=== PATIENT | female | born 1960 | race Caucasian/White ===

== ENCOUNTER → 2016-12-05 | Day surgery (SDC) | payer OTHER ==
[~2016-12-05] MED LIST: LEVOTHYROXINE100 MCG PO; LOVASTATIN20 MG PO; PAXIL10 MG PO
--- NOTE | 2016-12-05 10:36 | NUR ---
PRE OP INSTRUCTIONS GIVEN AND SAFETY ISSUES DISCUSSED PT AND DAUGHTER HAD QUESTIONS ANSWERED PT CONFIRMED PROCEDURE PT SIGNED CONSENT
--- NOTE | 2016-12-05 12:58 | NUR ---
ID PT IN PRE-OP HOLDING CONFIRMS CONSENT DENIES ALLERGIES NO ATIBIOTIC ORDERED
--- NOTE | 2016-12-05 13:32 | Provider's Discharge Care Plan ---
Problem, Goal, Plan Problem List 1. Irritable bowel syndrome
--- NOTE | 2016-12-05 13:32 | Provider's Discharge Care Plan ---
Problem, Goal, Plan Problem List 1. Irritable bowel syndrome
--- NOTE | 2016-12-05 13:40 | NUR ---
PT TX TO PACU-- AWAKE, TALKING, COMPLAINING OF CRAMPS, ASKING HOW TO RID HERSELF OF IT. ENCOURAGED MOVEMENT, AND WALKING ONCE WE GET UPSTAIRS. VS STABLE, O2 ON FOR NOW.
--- NOTE | 2016-12-05 14:05 | NUR ---
PT TX TO [place]U ON [place], REPORT TO CHAU blair pT AWAKE, PASSING FLATUS, DAUGHTER WITH US TO HER ROOM
--- NOTE | 2016-12-05 14:09 | NUR ---
PT RETURNED FROM PACU STATED AMB TIGHT
--- NOTE | 2016-12-05 14:40 | OPERATIVE REPORT ---
DATE OF SURGERY: 12/05/2016 SURGEON: Rk Williamson MD PREOPERATIVE DIAGNOSIS: 1. Irritable bowel syndrome POSTOPERATIVE DIAGNOSES: 1. Normal colonoscopy PROCEDURE PERFORMED: 1. colonoscopy ANESTHESIA: Total IV general. INDICATIONS: The patient is a 56-year-old woman with a diagnosis of irritable bowel syndrome and ongoing colonic symptoms. She had 2 hyperplastic polyps on colonoscopy by Dr. Horne in 2009. SURGICAL TECHNIQUE: The patient was taken to the operating room, where total IV general was administered and the patient was placed in the left lateral decubitus position. A well-lubricated colonoscope was advanced the length of the colon under direct vision. The patient had moderate tortuosity and abdominal counter pressure was required. The ileocecal valve was visualized. On withdrawal, the whole colon was inspected. There was some minor nonsignificant bumps in the rectum, which may be what was previously found to be hyperplastic polyps. None of these were of enough significance to warrant a biopsy. A retroflexed view was also conducted. The patient left in good condition and no intraoperative complications were encountered.
--- NOTE | 2016-12-05 14:48 | NUR ---
PT AMBULATED IN DASH PASSED FLATUS ASKING TO GO HOME REVIEWED DISCHARGE INSTRUCTIONS VERBAL AND WRITTEN PT EXPRESSED UNDERSTANDING PT DISCHARGED AMBULATORY ACCOMPANIED BY ADULT DAUGHTER
== END | disposition home or self-care (01) ==
LOC: OR SRH 09:41
PROVIDERS: Surgery
PROC: 0DJD8ZZ Inspection of Lower Intestinal Tract, Via Natural or Artificial Opening Endoscopic (ICD-10-PCS; principal; 2016-12-05 12:15)
DX: Z12.11 Encounter for screening for malignant neoplasm of colon (principal); Z86.010 Personal history of colon polyps; K58.0 Irritable bowel syndrome with diarrhea
CPT/HCPCS: 29229; 50004; 60001; 83526

== ENCOUNTER 2017-01-08 09:36 | Outpatient (CLI) | payer OTHER ==
--- NOTE | 2017-01-08 11:10 | DIAGNOSTIC IMAGING REPORT ---
PROCEDURE: US SOFT TISSUE THYR/NECK/HEAD INDICATION: LEFT NECK MASS TECHNIQUE: Alvarado scale and color Doppler sonographic images of the thyroid gland were obtained. COMPARISON: None. FINDINGS: There are several bilateral cervical lymph nodes with normal morphology, slightly more prominent on the left side, largest 1.5 cm in diameter. These findings suggest inflammatory lymph nodes. Right submandibular gland measures 3.9 x 1.5 cm and left submandibular gland measures 3.7 x 1.5 cm. Both have a normal appearance without evidence of mass or inflammatory changes. IMPRESSION: 1. Mild bilateral cervical lymph nodes with normal morphology, more prominent on the left, possibly inflammatory. 2. No evidence of a neck mass.
== END 2017-01-08 23:00 ==
LOC: US SRH 09:36
DX: R22.1 Localized swelling, mass and lump, neck (principal)

== ENCOUNTER 2017-05-09 01:19 | Emergency (ER) | payer OTHER ==
--- NOTE | 2017-05-09 05:47 | ED ORDER SUMMARY ---
..... Patient: MATT NAVARRETE OrderSheet Merg[facility] With [facility] VisitID: [id number] [place] [address] 56y, F Registration Date/Time: 05/09/2017 ORDER SHEET Weight: 99.3 kg (stated) Allergies: Augmentin GENERAL ORDERS: Election Assistant (Continuous) (dizzy) (01:35 05/09/2017 Galindo Camara) (Ack 1:36 OSnell) (3:03 Ezequiel R.N.) EKG - ER Stat (01:35 05/09/2017 Galindo Camara) (Ack 1:36 OSnell) (1:42 Sheryl ER Government Clerk) Pulse oximeter (:05/09/2017 Galindo Camara) (Ack 1:36 OSnell) (1:59 Ezequiel R.N.) CBC w Diff Urgent (02:34 05/09/2017 Galindo Camara) (Ack 2:37 OSnell) (3:03 Ezequiel R.N.) CMP Urgent (02:34 05/09/2017 Galindo Camara) (Ack 2:37 OSnell) (3:03 Ezequiel R.N.) PT with INR Urgent (02:34 05/09/2017 Galindo Camara) (Ack 2:37 OSnell) (3:03 Ezequiel R.N.) Troponin-I Urgent (02:34 05/09/2017 Galindo Camara) (Ack 2:37 OSnell) (3:03 Ezequiel R.N.) Troponin-I (redraw at 0445) Urgent (03:25 05/09/2017 Galindo Camara) (Ack 3:28 OSnell) (4:58 Ezequiel R.N.) MEDICATION ORDERS: IV FLUIDS: IV NS : initial bolus 1000 mL (1000 mL/hr), then none - for X1 (NOW) (02:34 05/09/2017 Galindo Camara) (3:04 Ezequiel R.N.) ORDER SHEET NOTES: [Electronically signed by Meliza Edwards R.N. (06:05 05/09/2017)] [Electronically signed by Sabino Stone Dr. (06:39 05/10/2017)] [Electronically locked/signed by Meliza Edwards R.N. (06:05 05/09/2017)]
--- NOTE | 2017-05-09 05:47 | ED CLINICAL REPORT ---
Clinical Report - Physicians/Mid Levels [facility] [address] [place] [address] 05/09/2017 1:20 Patient: MATT NAVARRETE Time Seen: 0135; initial patient contact. Arrived- By private vehicle. Historian- patient. HISTORY OF PRESENT ILLNESS Chief Complaint: NEAR-SYNCOPE. Is no longer unconscious. She has recovered. This occurred today. It was abrupt in onset and has been constant. Event was not witnessed. The patient had preceding symptoms of light-headedness. She had preceding symptoms of nausea (no vomiting). The patient felt faint. Had a single episode. The episode lasted minutes. No injuries noted. Currently she feels normal. (reports diaphoresis. no other symptoms. no chest pain or shortness of breath. Hx of irritable bowel syndrome. patient concerned about a heart attack. states she read that females "poopoo there symptoms and don't come in." states she won't do that.). Similar symptoms previously: None. Recent medical care: Not recently seen/assessed. REVIEW OF SYSTEMS The patient has had abdominal pain, vomiting, diarrhea, black stools and bloody stools. All systems otherwise negative, except as recorded above. PAST HISTORY See nurses notes. SOCIAL HISTORY Never smoker. Occasional alcohol use. No drug use. Recent travel- ([facility]). Is a local resident. FAMILY HISTORY (No Family History of Early Cardiac Disease). ADDITIONAL NOTES The nursing notes have been reviewed. PHYSICAL EXAM Vital Signs: 05/09/2017 01:25 BP: 153/91. HR: 68. RR: 18. O2 saturation: 98%. Temp: 98.2 F. Pain level now: 0/10. Oxygen saturation normal. Appearance: Alert. No acute distress. Eyes: Pupils equal, round and reactive to light. No nystagmus. Extraocular movements normal. ENT: Normal ENT inspection. TM's normal. Moist mucous membranes. Pharynx normal. Neck: Normal inspection. Neck supple. CVS: Normal heart rate and rhythm. Heart sounds normal. Pulses normal. Respiratory: No respiratory distress. Breath sounds normal. Abdomen: Soft and nontender. No organomegaly. Skin: Skin warm and dry. Normal skin color. No rash. Normal skin turgor. Extremities: Extremities exhibit normal ROM. No lower extremity edema. Neuro: Alert. Oriented X 3. Mood/affect normal. Speech normal. Cranial nerves normal (as tested). No cerebellar findings. No motor deficit. No sensory deficit. Reflexes normal. LABS, X-RAYS, AND EKG EKG: No acute ischemia. Normal sinus rhythm. Rate: 60. Normal P waves. First-degree atrioventricular block (218). Normal QRS complex. Q waves in lead III and aVF. Normal axis. Normal ST and T waves, QT and QTc. The study has been interpreted contemporaneously. The study has been independently viewed by me. The EKG appears to be a good tracing. Laboratory Tests: CBC w Diff: (RODRIGO: 05/09/2017 02:48) ( [facility] 05/09/2017 03:09) Final results Test Result Flag Units (Reference) WHITE BLOOD COUNT 10.6 K/uL (4.5-11.5) RED BLOOD COUNT 4.77 M/uL (4.00-5.20) HEMOGLOBIN 14.2 gm/dL (12.0-16.0) HEMATOCRIT 42.9 % (36.0-46.0) MEAN CELL VOLUME 90 fL (80-100) MEAN CORPUSCULAR HGB 30 pg (26-34) MEAN CORPUSCULAR HGB CONC 33 g/dL (31-37) RED CELL DISTRIBUTION WIDTH 13.1 % (11.6-14.8) PLATELET COUNT 270 K/uL (150-400) NEUTROPHIL % 68.0 % (50-75) LYMPH % 23.7 L % (25-40) MONO % 5.8 % (3-14) EOSINOPHIL % 2.0 % (0-4) BASOPHIL % 0.5 % (0-2) PT with INR: (RODRIGO: 05/09/2017 02:48) ( [facility] 05/09/2017 03:13) Final results Test Result Flag Units (Reference) INR 0.9 (0.8-1.2) Low Intensity Therapy: INR 1.5-2.0 PT range 18.5-23.1Mod.Intensity Therapy: INR 2.0-3.0 PT range 23.1-31.5High Intensity Therapy: INR 2.5-3.5 PT range 27.4-35.5High Intensity Therapy 2: INR 3.0-4.0 PT range 31.5-39.3 Troponin-I: (RODRIGO: 05/09/2017 04:48) ( [facility] 05/09/2017 05:22) Final results Test Result Flag Units (Reference) TROPONIN I <0.05 ng/mL (0.00-1.5) TROPONIN REFERENCE RANGE:<0.1 NEGATIVE0.1-1.5 INDETERMINANT>1.5 POSITIVE CMP: (RODRIGO: 05/09/2017 02:48) ( [facility] 05/09/2017 03:24) Final results Test Result Flag Units (Reference) GLUCOSE 111 H mg/dL (70-110) BUN 18 mg/dL (7-18) CREATININE 1.0 mg/dL (0.6-1.3) Estimated GFR >60 mL/min Estimated GFR- >60 mL/min Note: Persistent reduction over 3 months in eGFR<60 mL/min/1.73 m2 defines CKD. Patients with eGFR values>=60 mL/min/1.73 m2 may also have CKD if evidence ofpersistent proteinuria. Additional information may be foundat www.kidney.org. SODIUM 142 mmol/L (136-145) POTASSIUM 3.6 mmol/L (3.5-5.1) CHLORIDE 104 mmol/L (98-107) CARBON DIOXIDE 30 mmol/L (21-32) CALCIUM 8.5 mg/dL (8.5-10.1) TOTAL PROTEIN 7.0 g/dL (6.4-8.2) ALBUMIN 3.7 g/dL (3.3-5.0) BILIRUBIN, TOTAL 0.4 mg/dL (0.0-1.0) ALKALINE PHOSPHATASE 90 U/L (46-116) AST (SGOT) 15 U/L (15-37) ALT (SGPT) 24 U/L (12-78) TROPONIN I <0.05 ng/mL (0.00-1.5) TROPONIN REFERENCE RANGE:<0.1 NEGATIVE0.1-1.5 INDETERMINANT>1.5 POSITIVE . PROGRESS AND PROCEDURES Course of Care: The patient is a 56-year-old female with no pertinent past medical history presenting for evaluation of syncope-like event. Patient also with nausea and diaphoresis. Patient reports no chest pain or shortness of breath. Patient will be evaluated for atypical presentation of acute myocardial infarction. Do not feel patient is a pulmonary embolism. Patient is not having any chest pain or shortness of breath. Patient is agreeable to the treatment and plan. The patient's workup was remarkable for negative troponin 2. No other abnormalities noted on patient's workup. EKG is unremarkable. Hemoglobin and hematocrit are noted to be within normal limits. White blood cell count is noted to be 10.6. Had long discussion with patient in regards to her presentation here in the emergency department. Discussed with the patient her workup here in the emergency department including diagnosis, home care, follow-up, and return precautions. All questions have been answered. The patient expressed understanding of these instructions and was agreeable to them. Prior to patient's departure from the emergency department she is noted to be resting in bed and in no acute distress. Symptoms had resolved. Patient continues to be a good outpatient candidate. Patient at low risk for acute myocardial infarction. Disposition: Discharged. Condition: good. CLINICAL IMPRESSION 05/09/2017 01:25 BP: 153/91. HR: 68. RR: 18. O2 saturation: 98%. Temp: 98.2 F. Pain level now: 0/10. Moderate nausea (acute). No vomiting. Hypertensive. Oxygen saturation normal. Atypical chest pain .12 lead EKG performed. (acute). Essential hypertension. INSTRUCTIONS Warnings: GENERAL WARNINGS: Return or contact your physician immediately if your condition worsens or changes unexpectedly, if not improving as expected, or if other problems arise. SPECIFICALLY, return if you develop chest pain, fluttering sensation in your chest, lightheadedness, fainting, numbness, weakness or extreme fatigue. Your Current Medications: CONTINUE TAKING THE FOLLOWING MEDICATIONS: Levothyroxine Sodium Oral : 112 mcg daily. Lisinopril Oral : Tablet 10 mg, 1 tablet daily. Lovastatin Oral : Tablet 20 mg, 1 tablet daily. Sertraline HCl Oral : Tablet 25 mg, 1 tablet daily. Follow-up: Return to the emergency department as needed. Follow up with your doctor in three days. Reason for referral: recheck today's concerns. Summary of care provided to patient via paper. Screening today revealed the patient's blood pressure to be in the hypertensive range. The patient should follow up with a primary care provider for blood pressure management. Understanding of the discharge instructions verbalized by patient. (Electronically signed by Sabino Stone Dr. 05/10/2017 6:39)
--- NOTE | 2017-05-09 05:47 | ED NURSING NOTES ---
Clinical Report - Nurses [facility] [address] [place] [address] 05/09/2017 1:20 Patient: MATT NAVARRETE TRIAGE Triage time 01:26. Acuity: LEVEL 3. Chief Complaint: NAUSEA and CHILLS. --01:34 Meliza Edwards R.N. 01:25 05/09/17. BP: 153/91. HR: 68 (regular and normal rate). RR: 18 (regular and unlabored). O2 saturation: 98% on room air. Temp: 98.2 F. Pain level now: 0/10. --01:34 Meliza Edwards R.N. Weight: 99.3 kg stated. Height/Length: 72 inches Per Patient. BMI: 29.7. --01:27 Meliza Edwards R.N. Medications Lisinopril Oral (Tablet 10 mg) 1 tablet, daily. --01:30 Meliza Edwards R.N. Sertraline HCl Oral (Tablet 25 mg) 1 tablet, daily. --01:30 Meliza Edwards R.N. Levothyroxine Sodium Oral 112 mcg, daily. --01:30 Meliza Edwards R.N. Lovastatin Oral (Tablet 20 mg) 1 tablet, daily. --01:31 Meliza Edwards R.N. Allergies Augmentin. Definite Severe(diarrhea, nausea, vomiting) --01:31 Meliza Edwards R.N. History Arrived by private vehicle. Historian: patient. Accompanied by friend. Primary physician (tucker). Onset. (about 1 hours ago). ( pt reports feeling sweaty and nauseated, checked BP and states very high, then checked it again states very Low, denies CP, dizziness, or other complaints, pt sttes HX of panic attacks). She has had nausea. PAST MEDICAL HX: Immunizations: up-to-date. The patient is post-menopausal. SOCIAL HX: Never smoker. Occasional alcohol use. No drug use. Recent travel by airplane in the last week- [facility]. She has had contact with a sick sister. Symptoms of the sick contact include cough. They have had different symptoms. ABUSE ASSESSMENT: No report of abuse. SELF HARM ASSESSMENT: A self harm assessment was performed. The patient answered "no" to the question "Have you recently felt down, depressed, or hopeless?", "Have you noticed less interest or pleasure in doing things?", "Do you have thoughts of harming or killing yourself?", "Are you here because you tried to hurt yourself?", "Have you ever tried to hurt yourself before today?", "Have you recently had thoughts about harming or killing others?" and "Do you have any dangerous items in your possession?". FALL RISK ASSESSMENT: Fall risk assessment completed. No fall risk identified. NUTRITIONAL RISK ASSESSMENT: The nutritional risk assessment revealed no deficiencies. FUNCTIONAL ASSESSMENT: Functional assessment: no impairments noted. LEARNING NEEDS ASSESSMENT: The learning needs assessment revealed no barriers. SKIN INTEGRITY ASSESSMENT: Skin integrity risk assessment completed. No skin integrity risk identified. --01:34 Meliza Edwards R.N. PROBLEMS: Immunizations. Laceration. Hyperlipidemia. Thyroid Disease. Tetanus Status. Hypertension. Sprain. --01:32 Meliza Edwards R.N. ADDITIONAL SURGERIES: Adenoidectomy. Tonsillectomy. --01:32 Meliza Edwards R.N. Interventions ID band on patient. To treatment room. --01:34 Meliza Edwards R.N. PHYSICAL ASSESSMENT To room via wheelchair. GENERAL / NEURO / PSYCH: Alert. Oriented X 4. Appears in no acute distress. HEENT: Mucous membranes are pink. RESPIRATORY: Respirations not labored. Breath sounds within normal limits. CVS: Normal sinus rhythm noted. Capillary refill less than 2 seconds. GI / : The patient has had constant nausea. Abdomen soft and nontender. Bowel sounds within normal limits. SKIN: Skin is warm and dry. --01:35 Meliza Edwards R.N. NURSING PROGRESS NOTES Patient gowned. Two patient identifiers checked. Call light placed in reach. Side rails up x 1. Bed placed in lowest position. Brakes of bed on. Patient ready for evaluation- chart flagged. --01:35 Meliza Edwards R.N. EKG time: (0140). EKG was ordered, performed by a tech and shown to the ED physician. --01:44 Devin Gusman, ER Commander [employer] 03:00 05/09/2017 Site #1 started via IV in the right antecubital space with an 20g angiocath, with aseptic technique and good blood return; one attempt. Blood drawn: rainbow set. Labeled in the presence of the patient and sent to the lab. Saline lock flushed with 10 mL saline. --03:04 Meliza Edwards R.N. 03:00 05/09/2017 Started bag #1 1000 mL IV Fluids IV NS (Saline); bolus of 1000 mL wide open then over 1 hour(s) via site #1. Allergies verified and confirmed 5 rights. IV patency established. IV site checked: no pain, redness, or swelling. IV flushed thoroughly pre- and post-medication administration. --03:04 Meliza Edwards R.N. 03:44 05/09/2017 IV Fluids IV NS Discontinued: completed. Total amount infused: 1000 mL. IV patency established. IV site checked: no pain, redness, or swelling. IV flushed thoroughly. --03:44 Meliza Edwards R.N. Patient ID band checked for patient name and birthdate: patient confirmed. Blood samples drawn from the peripheral IV site by nurse per protocol ; labeled in presence of the patient and sent to lab: green top; cardiac enzymes (2nd set). --04:59 Meliza Edwards R.N. DISPOSITION / DISCHARGE 05:50 05/09/2017 Site #1 removed upon discharge. Catheter intact. Manual pressure and bandage applied. --06:04 Meliza Edwards R.N. Departure time: 0559. Condition at departure: improved and stable. No learning barriers present. Discharge instructions provided and reviewed with the patient. Patient verbalized understanding. Written instructions provided in [place] Timorese. No medication instructions, treatment instructions, activity restrictions or note given. The patient was discharged home and accompanied by reel assembler. She left the Emergency Department ambulatory and via private vehicle. Felt Cutting Machine Operator driving. --06:05 Meliza Edwards R.N. 06:04 05/09/17. BP: deferred. HR: deferred. RR: deferred. O2 saturation: deferred. Temp: deferred. Pain level now deferred. --06:05 Meliza Edwards R.N. Locked/Released at 05/09/2017 6:05 by Meliza Edwards R.N.
--- NOTE | 2017-05-09 05:47 | ED ORDER SUMMARY ---
..... Patient: MATT NAVARRETE OrderSheet [facility] VisitID: [id number] [place] [address] 56y, F Registration Date/Time: 05/09/2017 ORDER SHEET Weight: 99.3 kg (stated) Allergies: Augmentin GENERAL ORDERS: Cycle Touring Guide (Continuous) (dizzy) (01:35 05/09/2017 Galindo Camara) (Ack 1:36 OSnell) (3:03 Ezequiel R.N.) EKG - ER Stat (01:35 05/09/2017 Galindo Camara) (Ack 1:36 OSnell) (1:42 Sheryl ER Exchange Trouble Shooter) Pulse oximeter (:05/09/2017 Galindo Camara) (Ack 1:36 OSnell) (1:59 Ezequiel R.N.) CBC w Diff Urgent (02:34 05/09/2017 Galindo Camara) (Ack 2:37 OSnell) (3:03 Ezequiel R.N.) CMP Urgent (02:34 05/09/2017 Galindo Camara) (Ack 2:37 OSnell) (3:03 Ezequiel R.N.) PT with INR Urgent (02:34 05/09/2017 Galindo Camara) (Ack 2:37 OSnell) (3:03 Ezequiel R.N.) Troponin-I Urgent (02:34 05/09/2017 Galindo Camara) (Ack 2:37 OSnell) (3:03 Ezequiel R.N.) Troponin-I (redraw at 0445) Urgent (03:25 05/09/2017 Galindo Camara) (Ack 3:28 OSnell) (4:58 Ezequiel R.N.) MEDICATION ORDERS: IV FLUIDS: IV NS : initial bolus 1000 mL (1000 mL/hr), then none - for X1 (NOW) (02:34 05/09/2017 Galindo Camara) (3:04 Ezequiel R.N.) ORDER SHEET NOTES: [Electronically signed by Meliza Edwards R.N. (06:05 05/09/2017)] [Electronically signed by aSbino Stone Dr. (06:39 05/10/2017)] [Electronically locked/signed by Meliza Edwards R.N. (06:05 05/09/2017)]
--- NOTE | 2017-05-09 05:47 | ED NURSING NOTES ---
Clinical Report - Nurses [facility] [address] [place] [address] 05/09/2017 1:20 Patient: MATT NAVARRETE TRIAGE Triage time 01:26. Acuity: LEVEL 3. Chief Complaint: NAUSEA and CHILLS. --01:34 Meliza Edwards R.N. 01:25 05/09/17. BP: 153/91. HR: 68 (regular and normal rate). RR: 18 (regular and unlabored). O2 saturation: 98% on room air. Temp: 98.2 F. Pain level now: 0/10. --01:34 Meliza Edwards R.N. Weight: 99.3 kg stated. Height/Length: 72 inches Per Patient. BMI: 29.7. --01:27 Meliza Edwards R.N. Medications Lisinopril Oral (Tablet 10 mg) 1 tablet, daily. --01:30 Meliza Edwards R.N. Sertraline HCl Oral (Tablet 25 mg) 1 tablet, daily. --01:30 Meliza Edwards R.N. Levothyroxine Sodium Oral 112 mcg, daily. --01:30 Melzia Edwards R.N. Lovastatin Oral (Tablet 20 mg) 1 tablet, daily. --01:31 Meliza Edwards R.N. Allergies Augmentin. Definite Severe(diarrhea, nausea, vomiting) --01:31 Meliza Edwards R.N. History Arrived by private vehicle. Historian: patient. Accompanied by friend. Primary physician (tucker). Onset. (about 1 hours ago). ( pt reports feeling sweaty and nauseated, checked BP and states very high, then checked it again states very Low, denies CP, dizziness, or other complaints, pt sttes HX of panic attacks). She has had nausea. PAST MEDICAL HX: Immunizations: up-to-date. The patient is post-menopausal. SOCIAL HX: Never smoker. Occasional alcohol use. No drug use. Recent travel by airplane in the last week- [facility] [place]. She has had contact with a sick sister. Symptoms of the sick contact include cough. They have had different symptoms. ABUSE ASSESSMENT: No report of abuse. SELF HARM ASSESSMENT: A self harm assessment was performed. The patient answered "no" to the question "Have you recently felt down, depressed, or hopeless?", "Have you noticed less interest or pleasure in doing things?", "Do you have thoughts of harming or killing yourself?", "Are you here because you tried to hurt yourself?", "Have you ever tried to hurt yourself before today?", "Have you recently had thoughts about harming or killing others?" and "Do you have any dangerous items in your possession?". FALL RISK ASSESSMENT: Fall risk assessment completed. No fall risk identified. NUTRITIONAL RISK ASSESSMENT: The nutritional risk assessment revealed no deficiencies. FUNCTIONAL ASSESSMENT: Functional assessment: no impairments noted. LEARNING NEEDS ASSESSMENT: The learning needs assessment revealed no barriers. SKIN INTEGRITY ASSESSMENT: Skin integrity risk assessment completed. No skin integrity risk identified. --01:34 Meliza Edwards R.N. PROBLEMS: Immunizations. Laceration. Hyperlipidemia. Thyroid Disease. Tetanus Status. Hypertension. Sprain. --01:32 Meliza Edwards R.N. ADDITIONAL SURGERIES: Adenoidectomy. Tonsillectomy. --01:32 Meliza Edwards R.N. Interventions ID band on patient. To treatment room. --01:34 Meliza Edwards R.N. PHYSICAL ASSESSMENT To room via wheelchair. GENERAL / NEURO / PSYCH: Alert. Oriented X 4. Appears in no acute distress. HEENT: Mucous membranes are pink. RESPIRATORY: Respirations not labored. Breath sounds within normal limits. CVS: Normal sinus rhythm noted. Capillary refill less than 2 seconds. GI / : The patient has had constant nausea. Abdomen soft and nontender. Bowel sounds within normal limits. SKIN: Skin is warm and dry. --01:35 Meliza Edwards R.N. NURSING PROGRESS NOTES Patient gowned. Two patient identifiers checked. Call light placed in reach. Side rails up x 1. Bed placed in lowest position. Brakes of bed on. Patient ready for evaluation- chart flagged. --01:35 Meliza Edwards R.N. EKG time: (0140). EKG was ordered, performed by a tech and shown to the ED physician. --01:44 Devin Gusman, ER Dress Cutter 03:00 05/09/2017 Site #1 started via IV in the right antecubital space with an 20g angiocath, with aseptic technique and good blood return; one attempt. Blood drawn: rainbow set. Labeled in the presence of the patient and sent to the lab. Saline lock flushed with 10 mL saline. --03:04 Meliza Edwards R.N. 03:00 05/09/2017 Started bag #1 1000 mL IV Fluids IV NS (Saline); bolus of 1000 mL wide open then over 1 hour(s) via site #1. Allergies verified and confirmed 5 rights. IV patency established. IV site checked: no pain, redness, or swelling. IV flushed thoroughly pre- and post-medication administration. --03:04 Meliza Edwards R.N. 03:44 05/09/2017 IV Fluids IV NS Discontinued: completed. Total amount infused: 1000 mL. IV patency established. IV site checked: no pain, redness, or swelling. IV flushed thoroughly. --03:44 Meliza Edwards R.N. Patient ID band checked for patient name and birthdate: patient confirmed. Blood samples drawn from the peripheral IV site by nurse per protocol ; labeled in presence of the patient and sent to lab: green top; cardiac enzymes (2nd set). --04:59 Meliza Edwards R.N. DISPOSITION / DISCHARGE 05:50 05/09/2017 Site #1 removed upon discharge. Catheter intact. Manual pressure and bandage applied. --06:04 Meliza Edwards R.N. Departure time: 0559. Condition at departure: improved and stable. No learning barriers present. Discharge instructions provided and reviewed with the patient. Patient verbalized understanding. Written instructions provided in [place]. No medication instructions, treatment instructions, activity restrictions or note given. The patient was discharged home and accompanied by job order clerk. She left the Emergency Department ambulatory and via private vehicle. 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 --06:05 Meliza Edwards R.N. 06:04 05/09/17. BP: deferred. HR: deferred. RR: deferred. O2 saturation: deferred. Temp: deferred. Pain level now deferred. --06:05 Meliza Edwards R.N. Locked/Released at 05/09/2017 6:05 by Meliza Edwards R.N.
--- NOTE | 2017-05-10 06:39 | ED MED RECONCILIATION SUMMARY ---
Patient: MATT NAVARRETE Medication Reconciliation Report [facility] VisitID: [id number] [address] [place] [address] 56y, F Registration Date/Time: 05/09/2017 Weight: 99.3 kg Height/Length: 72 in. BMI: 29.7 ALLERGIES: Augmentin The patient's Home Medications are listed below: CONTINUE TAKING THE FOLLOWING MEDICATIONS: Levothyroxine Sodium Oral 112 mcg, daily Lisinopril Oral (10 mg) 1 tablet, daily Lovastatin Oral (20 mg) 1 tablet, daily Sertraline HCl Oral (25 mg) 1 tablet, daily The source(s) of the original Home Medication information: Not obtained. The following Medications were given to the patient in the Emergency Department: IV NS IV Fluids bolus 1000 mL wide open, administered: 05/09/2017 3:00:00 AM The following Medications were prescribed to the patient: None.
--- NOTE | 2017-05-10 06:39 | ED MAR SUMMARY ---
..... Medication Administration Record [facility] [address] [place] [address] Patient: MATT NAVARRETE Visit ID: [id number] 56y, F Weight: 99.3 kg Height/Length: 72 in BMI: 29.7 ALLERGIES: Augmentin Start 03:00 05/09/2017 Meliza Edwards R.N., Stop 03:44 05/09/2017 Meliza Edwards R.N. Medication Administered: IV NS (SALINE), Dose: IV Fluids over 1 hour(s), Bolus: 1000 mL wide open, Dispensed: 1000 mL bag, Site: #1 right AC. Medication Ordered: IV NS : initial bolus 1000 mL (1000 mL/hr), then none - for X1 (NOW).
--- NOTE | 2017-05-10 06:39 | ED MAR SUMMARY ---
..... Medication Administration Record [facility] [address] [place] [address] Patient: MATT NAVARRETE Visit ID: [id number] 56y, F Weight: 99.3 kg Height/Length: 72 in BMI: 29.7 ALLERGIES: Augmentin Start 03:00 05/09/2017 Meliza Edwards R.N., Stop 03:44 05/09/2017 Meliza Edwards R.N. Medication Administered: IV NS (SALINE), Dose: IV Fluids over 1 hour(s), Bolus: 1000 mL wide open, Dispensed: 1000 mL bag, Site: #1 right AC. Medication Ordered: IV NS : initial bolus 1000 mL (1000 mL/hr), then none - for X1 (NOW).
--- NOTE | 2017-05-10 06:39 | ED MED RECONCILIATION SUMMARY ---
Patient: MATT NAVARRETE Medication Reconciliation Report [facility] VisitID: [id number] [address] [place] [address] 56y, F Registration Date/Time: 05/09/2017 Weight: 99.3 kg Height/Length: 72 in. BMI: 29.7 ALLERGIES: Augmentin The patient's Home Medications are listed below: CONTINUE TAKING THE FOLLOWING MEDICATIONS: Levothyroxine Sodium Oral 112 mcg, daily Lisinopril Oral (10 mg) 1 tablet, daily Lovastatin Oral (20 mg) 1 tablet, daily Sertraline HCl Oral (25 mg) 1 tablet, daily The source(s) of the original Home Medication information: Not obtained. The following Medications were given to the patient in the Emergency Department: IV NS IV Fluids bolus 1000 mL wide open, administered: 05/09/2017 3:00:00 AM The following Medications were prescribed to the patient: None.
--- NOTE | 2017-05-10 06:39 | ED DISCHARGE INSTRUCTIONS ---
Patient: MATT NAVARRETE General Instructions [facility] VisitID: [id number] [place] [address] 56y, F Registration Date/Time: 05/09/2017 05/09/2017 01:25 BP: 153/91. HR: 68. RR: 18. O2 saturation: 98%. Temp: 98.2 F. Pain level now: 0/10. Moderate nausea (acute). No vomiting. Hypertensive. Oxygen saturation normal. Atypical chest pain .12 lead EKG performed. (acute). Essential hypertension. INSTRUCTIONS Warnings: GENERAL WARNINGS: Return or contact your physician immediately if your condition worsens or changes unexpectedly, if not improving as expected, or if other problems arise. SPECIFICALLY, return if you develop chest pain, fluttering sensation in your chest, lightheadedness, fainting, numbness, weakness or extreme fatigue. Your Current Medications: CONTINUE TAKING THE FOLLOWING MEDICATIONS: Levothyroxine Sodium Oral : 112 mcg daily. Lisinopril Oral : Tablet 10 mg, 1 tablet daily. Lovastatin Oral : Tablet 20 mg, 1 tablet daily. Sertraline HCl Oral : Tablet 25 mg, 1 tablet daily. Follow-up: Return to the emergency department as needed. Follow up with your doctor in three days. Reason for referral: recheck today's concerns. Summary of care provided to patient via paper. Screening today revealed the patient's blood pressure to be in the hypertensive range. The patient should follow up with a primary care provider for blood pressure management. Understanding of the discharge instructions verbalized by patient. ADDITIONAL INFORMATION High Blood Pressure --Established High Blood Pressure (Hypertension) is a chronic disease. The cause is unknown in most cases. It can usually be controlled with lifestyle changes and/or medicines. Symptoms of high blood pressure may include headache, dizziness, visual changes, chest pain and shortness of breath. Sometimes it causes no symptoms at all. However, even if there are no symptoms, untreated high blood pressure increases the risk of heart attack, also known as acute myocardial infarction, or AMI, and stroke. It is a serious health risk and should not be ignored. A normal blood pressure is 120/80 or less. The first (top) number is the "systolic" pressure. The second (bottom) number is the "diastolic" pressure. Hypertension exists when either the top number is 140 or higher, OR the bottom number is 90 or higher on repeated measurements. Home Care: All patients with high blood pressure should do the following to lower their pressure. If you are on medicines, then these methods may reduce or eliminate your need for medicines in the future. Begin a weight loss program if you are overweight. Reduce your salt intake. Avoid high salt foods (olives, pickles, smoked meats, salted potato chips, etc.). Do not add salt to your food at the table. Use only small amounts of salt when cooking. Begin an exercise program. Discuss with your doctor what type of exercise program would be best for you. It doesn't have to be difficult. Even brisk walking for 20 minutes three times a week is a good form of exercise. Avoid medicines which contain heart stimulants. This includes many cold and sinus decongestant pills and sprays as well as diet pills. Check the warnings about hypertension on the label. Stimulants such as amphetamine or cocaine could be lethal for someone with hypertension. Never take these. Limit your caffeine intake or switch to caffeine-free products. Stop smoking. If you are a long-time smoker, this can be hard. Enroll in a stop-smoking program to improve your chance of success. Learning how to handle stress better is an important part of any program to lower blood pressure. Learn about relaxation methods such as meditation, yoga or biofeedback. If medicines were prescribed, take them exactly as directed. Missing doses may cause your blood pressure get out of control. Consider buying an automatic blood pressure machine (available at most pharmacies). Use this to monitor your blood pressure at home and report the results to your doctor. Follow Up: Regular visits to your own physician for blood pressure checks and medicine adjustment is an important part of your care. Make a follow-up appointment as directed by our staff. Get Prompt Medical Attention if any of the following occur: Chest pain or shortness of breath Severe headache Throbbing or rushing sound in the ears Nosebleed Sudden severe abdominal pain Extreme drowsiness, confusion or fainting Dizziness or vertigo (dizziness with spinning sensation) Weakness of an arm or leg or one side of the face Difficulty with speech or vision Food Poisoning Or Viral Gastroenteritis (6Yr-Adult) You have a stomach illness that is likely either food poisoning or viral gastroenteritis. Food poisoning occurs from1 to 24 hours after eating contaminated food and lasts up to 1 to 2 days. Viral gastroenteritis is commonly known as the stomach flu. It may last up to a week. Symptoms of both illnesses may include vomiting, diarrhea, fever, and stomach cramping. Antibiotics are not an effective treatment for either problem, but simple home treatment can give relief. Home Care: If symptoms are severe, rest at home for the next 24 hours. You may use acetaminophen (Tylenol) or ibuprofen (Motrin, Advil) to control fever, unless another medication was prescribed. [NOTE: If you have chronic liver or kidney disease or ever had a stomach ulcer or GI bleeding, talk with your doctor before using these medications. Do not give aspirin to anyone under 18 years of age who is ill with a fever.] Avoid tobacco and alcohol consumption. These may worsen your symptoms. If medicines for diarrhea or vomiting were prescribed, take these only as directed. Never take these without a healthcare providers approval. During the first12 to 24hours follow the diet below: BEVERAGES: Sport drinks like Gatorade, soft drinks without caffeine; beto gaetano, mineral water (plain or flavored), decaffeinated tea and coffee. SOUPS: Clear broth, consomm and bouillon DESSERTS: Plain gelatin (Jell-O), popsicles and fruit juice bars. During the next 24 hours you may add the following to the above: Hot cereal, plain toast, bread, rolls, crackers Plain noodles, rice, mashed potatoes, chicken noodle or rice soup Unsweetened canned fruit (avoid pineapple), bananas Limit fat intake to less than 15 grams per day by avoiding margarine, butter, oils, mayonnaise, sauces, gravies, fried foods, peanut butter, meat, poultry, and fish. Limit fiber; avoid raw or cooked vegetables, fresh fruits (except bananas) and bran cereals. Limit caffeine and chocolate. No spices or seasonings except salt. Gradually resume a normal diet as you feel better and your symptoms lessen. Follow Up with your doctor as advised if you are not better in 2 days. If a stool (diarrhea) sample was taken, you may call in 2 days (or as directed) for the results. Get Prompt Medical Attention if any of the following occur: Increasing abdominal pain or constant lower right abdominal pain Continued vomiting (unable to keep liquids down) Frequent diarrhea (more than 5 times a day) Blood in vomit or stool (black or red color) Signs of dehydration: increased thirst, dark urine, reduced or no urine output, dry mouth and tongue, tireness or weakness, dizziness when standing, rapid breathinng New rash Fever of 100.4F (38C) oral or higher, not better with fever medication Chest Pain, Uncertain Cause Chest pain can happen for a number of reasons. Sometimes the cause can not be determined. If yourcondition does not seem serious, and your pain does not appear to be coming from your heart, your doctor may recommend watching it closely. Sometimes the signs of a serious problem take more time to appear. Therefore, watch for the warning signs listed below. Home care After your visit, follow these recommendations: Rest today and avoid strenuous activity. Take any prescribed medicine as directed. Follow-up care Follow up with your doctor or this facility as instructed or if you do not start to feel better within 24 hours. Call 911 Get immediate medical attention if any of the following occur: A change in the type of pain: if it feels different, becomes more severe, lasts longer, or begins to spread into your shoulder, arm, neck, jaw or back Shortness of breath or increased pain with breathing Weakness, dizziness, or fainting Rapid heart beat Get prompt medical attention Call your doctor right away if any of the following occur: Cough with dark colored sputum (phlegm) or blood Fever of 100.4F(38C) or higher, or as directed by your health care provider Swelling, pain or redness in one leg You have been given the following additional information: Hypertension, Established Food Poisoning Or Gastroenteritis (6Y-Adult) Chest Pain, Uncertain Cause (Electronically signed by Sabino Stone Dr. 05/10/2017 6:39)
== END 2017-05-09 05:59 | disposition home or self-care (01) ==
LOC: ED SRH 01:19
DX: R07.89 Other chest pain (principal); I10 Essential (primary) hypertension; R11.2 Nausea with vomiting, unspecified; E78.5 Hyperlipidemia, unspecified; E07.9 Disorder of thyroid, unspecified; Z79.899 Other long term (current) drug therapy; Z88.1 Allergy status to other antibiotic agents
CPT/HCPCS: 90100; 90616; 94060; 95059